=== PATIENT | female | born 1980 | race Native Hawaiian/Other Pacific Islander ===

== ENCOUNTER 2020-07-10 11:15 | Outpatient (CLI) | payer OTHER | END 2020-07-10 23:21 | disposition home or self-care (01) | LOC: MAMMO 11:15 | PROVIDERS: ATTEND Psychiatry & Neurology Psychiatry | DX: Z12.31 Encounter for screening mammogram for malignant neoplasm of breast (principal) ==

== ENCOUNTER 2020-08-14 12:38 | Outpatient (CLI) | payer OTHER ==
[2020-08-14 14:15] LABS: PLATELET COUNT 223 K/uL (152-353)
== END 2020-08-14 19:42 | disposition home or self-care (01) ==
LOC: LABW 12:38
PROVIDERS: ATTEND Obstetrics & Gynecology
DX: D25.9 Leiomyoma of uterus, unspecified (principal); N93.9 Abnormal uterine and vaginal bleeding, unspecified; N80.9 Endometriosis, unspecified; N97.8 Female infertility of other origin
CPT/HCPCS: 36415; 82397; 84146; 84436; 84443; 85027; 86762; 86787

== ENCOUNTER 2023-07-20 10:18 | Outpatient (CLI) | payer OTHER | END 2023-07-20 19:40 | disposition home or self-care (01) | LOC: MAMMO 10:18 | PROVIDERS: ATTEND Psychiatry & Neurology Psychiatry | DX: R92.8 Other abnormal and inconclusive findings on diagnostic imaging of breast (principal) ==